=== PATIENT | female | born 1935 | race Two or more races ===

== ENCOUNTER 2016-04-21 15:11 | Emergency (ER) | payer OTHER ==
[~2016-04-21] VITALS: Ht 160 cm; Wt 70.3 kg
[2016-04-21 15:55] VITALS: BP 115/61
[2016-04-21] MEDS ORDERED: HYDROcodone-ACET 10/325MG TAB PO ONE (16:30)
[2016-04-21] MEDS ORDERED: cefTRIAXone SOD 1,000 MG VL IM ONE (16:30)
== END 2016-04-21 17:06 | disposition home or self-care (01) ==
LOC: ER 15:20
DX: J20.9 Acute bronchitis, unspecified (principal); F41.9 Anxiety disorder, unspecified; F32.9 Major depressive disorder, single episode, unspecified
CPT/HCPCS: 71020; 96372; 99284; J0696